=== PATIENT | female | born 1950 | race Caucasian/White ===

== ENCOUNTER 2017-04-03 09:52 | Day surgery (SDC) | payer BC, MEDICARE ==
[~2017-04-03 09:52] MED LIST: Lactated Ringers 1,000 ML IV SCH
[2017-04-03] MEDS ORDERED: fentaNYL 100 MCG/2 ML SDV ONE (10:53)
[2017-04-03] MEDS ORDERED: Propofol 200 MG/20 ML SDV ONE ×3 (10:53→12:12)
--- NOTE | 2017-04-03 19:19 | OR ---
DATE OF SURGERY: 04/03/2017 REFERRING PROVIDER: Natasha Knapp MD. PRE-OPERATIVE DIAGNOSES: History of colon polyps. Last colonoscopy was 2011. There was no known family history of colon cancer or colon polyps. POST-OPERATIVE DIAGNOSES: Tortuous right and transverse portions of colon, otherwise normal. PROCEDURE: Colonoscopy. SURGEON: Caden Calderón M.D. ANESTHESIA: Monitored anesthesia care. BOWEL PREP: Good. Luz Marina is a 66-year-old female who was brought to the endoscopy suite after discussing risks and benefits of the procedure. Informed consent was obtained for conscious sedation and colonoscopy with or without biopsy and/or polypectomy. We also discussed possibility of missed lesions. Pre-procedure exam was unremarkable. IV, oxygen, and monitors were placed. The patient was placed in the left lateral decubitus position. Sedation was administered and a digital rectal exam was performed and unremarkable. Colonoscope was passed into the rectum and slowly advanced all the way to the cecum. The left colon was fairly straight and easily to navigate but once I reached the transverse and right colon it was rather tortuous and orientation did tend to expel the scope once I neared the cecum. Eventually, cecum was viewed and photographed. The colonoscope was slowly withdrawn and the mucosa was closed observed in a direct circumferential manner. The ascending colon was unremarkable. The transverse colon was unremarkable. The descending colon was unremarkable. The sigmoid colon was unremarkable. Retroflexion was performed and rectal mucosa was unremarkable. Scope was removed. The patient tolerated the procedure well. The patient was monitored until that baseline status. Discharge instructions were reviewed and the patient was discharged in good condition. COMPLICATIONS: None. TOTAL TIME: 33 minutes. ESTIMATED BLOOD LOSS: None. RECOMMENDATIONS/FOLLOW-UP: Would recommend repeating colonoscopy again in 5 years given the patient's personal history of colon polyps. I would like to kindly thank Dr. Knapp for this referral. DMB: 04/03/2017 13:16:13 MODL: 04/03/2017 19:13:36 /[id number]
== END 2017-04-03 13:17 | disposition home or self-care (01) ==
LOC: VM.SDS 09:52
PROVIDERS: ATTEND Family Medicine
DX: Z12.11 Encounter for screening for malignant neoplasm of colon (principal); K63.89 Other specified diseases of intestine; I10 Essential (primary) hypertension; E78.5 Hyperlipidemia, unspecified; M19.90 Unspecified osteoarthritis, unspecified site; E04.9 Nontoxic goiter, unspecified; E78.00 Pure hypercholesterolemia, unspecified; I34.1 Nonrheumatic mitral (valve) prolapse; Z86.010 Personal history of colon polyps; Z79.82 Long term (current) use of aspirin; Z79.899 Other long term (current) drug therapy; Z96.653 Presence of artificial knee joint, bilateral; Z90.49 Acquired absence of other specified parts of digestive tract; Z98.890 Other specified postprocedural states
CPT/HCPCS: J2704; J3010; J7120

== ENCOUNTER 2018-04-16 09:07 | Emergency (ER) | payer OTHER, MEDICARE ==
[2018-04-16] MEDS ORDERED: Sodium Chloride 0.9% 10 ML Syringe FLUSH PRN (09:17)
[2018-04-16] MEDS ORDERED: Meperidine PF 100 MG/ML Syringe IVPUSH ONE ×2 (09:18→09:58)
[2018-04-16] MEDS ORDERED: Sodium Chloride 0.9% 1,000 ML IV ONE (09:18)
[2018-04-16] MEDS ORDERED: Ondansetron 4 MG/2 ML SDV IVPUSH ONE (09:22)
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
[2018-04-16 09:46] LABS: CHLORIDE,CL 108 mmol/L (98-107); SODIUM,NA 146 mmol/L (136-145)
[2018-04-16 09:47] LABS: ANION GAP 15.8 mmol/L (10-20)
--- NOTE | 2018-04-16 10:23 | CR ---
[id number] RAD/RAD Chest PA or AP 1V EXAM: SINGLE VIEW CHEST. INDICATION: CHEST WALL PAIN COMPARISON: NO PREVIOUS SIMILAR EXAM IS AVAILABLE FINDINGS: The lungs are clear. The cardiomediastinal contour is normal. There appears to be surgical intervention of the left shoulder. There are multiple surgical clips in the upper abdomen. IMPRESSION: NO ACUTE PROCESS IDENTIFIED. Charlie Vasquez MD 04/16/18 [phone] Thank you for allowing us to participate in the care of your patient.
--- NOTE | 2018-04-16 10:24 | CR ---
[id number] RAD/RAD Pelvis W Right Lateral Hip Exam: RAD Pelvis W Right Lateral Hip Clinical Data: TRAUMA COMPARISON: NO PREVIOUS SIMILAR EXAM IS AVAILABLE FINDINGS: No definite fracture or dislocation is seen. A linear lucency projects against intratrochanteric region of the right hip. IMPRESSION: NO DEFINITE FRACTURE. LINEAR LUCENCY PROJECTING AGAINST INTRATROCHANTERIC REGION OF RIGHT HIP. CONSIDER A FOLLOW-UP RIGHT HIP RADIOGRAPH WITH DIFFERENT OBLIQUITIES. Charlie Vasquez MD 04/16/18 [id number] Thank you for allowing us to participate in the care of your patient.
--- NOTE | 2018-04-16 10:24 | CR ---
[id number] RAD/RAD Cervical Spine 2-3V EXAM: RAD Cervical Spine 2-3V CLINICAL DATA: TRAUMA COMPARISON: NO PREVIOUS SIMILAR EXAM IS AVAILABLE. FINDINGS: A limited study was performed. No fracture or subluxation is identified involving C1-C4. Further studies suggested. IMPRESSION: NO FRACTURE OR SUBLUXATION OF UPPER CERVICAL SPINE. LIMITED EXAM. Charlie Vasquez MD 04/16/18 [phone] Thank you for allowing us to participate in the care of your patient.
== END 2018-04-16 10:20 | disposition short-term general hospital (02) ==
LOC: VM.ED 09:07
DX: M25.551 Pain in right hip (principal); M54.2 Cervicalgia; M79.661 Pain in right lower leg; E78.00 Pure hypercholesterolemia, unspecified; I10 Essential (primary) hypertension; Z79.82 Long term (current) use of aspirin; Z79.899 Other long term (current) drug therapy; V03.90XA Pedestrian on foot injured in collision with car, pick-up truck or van, unspecified whether traffic or nontraffic accident, initial encounter
CPT/HCPCS: 36415; 71045; 72040; 80048; 83735; 85025; 85610; 96361; 96374; 96375; 99285-25